=== PATIENT | female | born 1985 | race American Indian/Alaskan Native ===

== ENCOUNTER 2021-05-13 15:27 | Emergency (ER) | payer MEDICARE ==
--- NOTE | 2021-05-13 16:46 | Emergency Department Report ---
HPI - General Chief Complaint: Medical Clearance Time Seen by Provider: 05/13/21 16:00 - HPI HPI: Room 2 Patient is a 35-year-old female present with a chief complaint of decrease in hemoglobin. The patient is approximately 6 weeks 4 days and reportedly had an ultrasound performed at [facility] that showed either no IUP or an IUP without a pole and was subsequently sent to the ED to rule out an ectopic . [facility] primary physician states that the patient's hemoglobin decreased from 7.2 2 days ago to 6.6 today. Patient denies abdominal pain or vaginal bleeding but states she has some low back pain. Patient denies history of fever ED Past Medical Hx - Surgical History Additional Surgical History: - Family History Family history: no significant - Social History Smoking Status: Never Smoker Substance Use Type: Alcohol (Occasional), Marijuana - Medications Home Medications: Home Medications Medication Instructions Recorded Confirmed Last Taken Type Valacyclovir HCl [valACYclovir] 1 tab PO BID 11/06/15 11/06/15 11/04/15 21:00 History 1 Docusate Sodium [Colace] 100 mg PO BID PRN #30 capsule 11/10/15 Unknown Rx Ferrous Sulfate [Feosol 325 MG tab] 325 mg PO TID #120 tablet 11/10/15 Unknown Rx Ibuprofen [Motrin] 800 mg PO Q8HR PRN #40 tablet 11/10/15 Unknown Rx Sulfamethoxazole/Trimethoprim 1 tab PO BID #20 tab 11/10/15 Unknown Rx [Bactrim 400-80 mg] oxyCODONE /ACETAMINOPHEN [Percocet 1 tab PO Q4HR PRN #40 tab 11/10/15 Unknown Rx 5/325] ED Review of Systems ROS: Stated complaint: BLOOD LOW Other details as noted in HPI Constitutional: no symptoms reported Eyes: denies: eye pain ENT: denies: throat pain Respiratory: no symptoms reported Cardiovascular: denies: chest pain Endocrine: no symptoms reported Gastrointestinal: denies: abdominal pain Genitourinary: denies: abnormal menses Musculoskeletal: back pain Neurological: other (Lightheadedness) Physical Exam - Physical Exam Vital Signs: Vital Signs 05/13/21 15:43 Temperature 98.8 F Pulse Rate 106 H Respiratory 18 Rate Blood Pressure 121/68 [Right] O2 Sat by Pulse 100 Oximetry Physical Exam: GENERAL: The patient is well-developed well-nourished female lying on stretcher not appearing to be in acute distress. [] HEENT: Normocephalic. Atraumatic. Extraocular motions are intact. Patient has moist mucous membranes. NECK: Supple. Trachea midline CHEST/LUNGS: Clear to auscultation. There is no respiratory distress noted. HEART/CARDIOVASCULAR: Regular. There is no tachycardia. There is no gallop rub or murmur. ABDOMEN: Abdomen is soft, nontender. Patient has normal bowel sounds. There is no abdominal distention. SKIN: There is no rash. There is no edema. There is no diaphoresis. NEURO: The patient is awake, alert, and oriented. The patient is cooperative. The patient has no focal neurologic deficits. The patient has normal speech. GCS MUSCULOSKELETAL: There is no evidence of acute injury. ED Course Vital Signs 05/13/21 15:43 Temperature 98.8 F Pulse Rate 106 H Respiratory 18 Rate Blood Pressure 121/68 [Right] O2 Sat by Pulse 100 Oximetry ED Medical Decision Making - Lab Data Result diagrams: 05/13/21 17:35 05/13/21 17:35 Laboratory Tests 05/13/21 05/13/21 05/13/21 17:35 17:35 17:35 WBC 6.6 RBC 3.75 Hgb 6.4 L Hct 21.6 L MCV 58 L MCH 17 L MCHC 30 RDW 19.5 H Plt Count 312 Lymph % (Auto) 26.5 [place] % (Auto) 7.2 Eos % (Auto) 1.1 Baso % (Auto) 0.5 Lymph # (Auto) 1.7 [place] # (Auto) 0.4 Eos # (Auto) 0.1 Baso # (Auto) 0.0 Seg Neutrophils % 65.3 Seg Neutrophils # 4.0 Sodium 134 L Potassium 3.5 L Chloride 103.6 Carbon Dioxide 20 L Anion Gap 14 BUN 13 Creatinine 0.5 L Estimated GFR > 60 BUN/Creatinine Ratio 26 Glucose 88 Calcium 8.5 Blood Type O POSITIVE Antibody Screen Negative - Radiology Data Radiology results: report reviewed (Pelvic ultrasound), image reviewed (Pelvic ultrasound) [facility] [address] [place] [address] Ultrasound Report Signed Patient: AMAURI ARNOLD MR#: [id number] : 1985 Acct:[id number] Age/Sex: 35 / F ADM Date: 05/13/21 Loc: ED Attending Dr: Ordering Physician: CHRISTELLE LE MD Date of Service: 05/13/21 Procedure(s): US transvaginal Accession Number(s): [id number] cc: CHRISTELLE LE MD ULTRASOUND OBSTETRIC INDICATION / CLINICAL INFORMATION: , concern for ectopic. - Clinical Gestational Age (GA) in weeks, days: 6, 6 TECHNIQUE: Transabdominal and Transvaginal. COMPARISON: None available. FINDINGS: GESTATIONAL SAC: Well-defined oval shape and intrauterine in location. YOLK SAC: No significant abnormality. EMBRYO/FETUS: No significant abnormality. - [place]-Rump Length = 0.49 cm = 6, 2 weeks, days - Heart Rate, beats per minute (if present) = 126 UTERUS: No significant abnormality. ADNEXA: 1.4 cm slightly complex left ovarian cyst. FREE FLUID: None. ADDITIONAL FINDINGS: None. IMPRESSION: 1. Single, living intrauterine with estimated sonographic age of 6, 2 weeks, days. 2. Slightly complex left ovarian cyst measuring 1.4 cm. No routine follow-up is needed. Signer Name: Alex Saeed MD Signed: 05/13/2021 4:55 PM Workstation Name: [id number] Transcribed By: DT Dictated By: Juan Saeed MD Electronically Authenticated By: Juan Saeed MD Signed Date/Time: 05/13/211654 DD/ 50 TD/TT: - Differential Diagnosis Blighted ovum, ectopic Critical care attestation.: If time is entered above; I have spent that time in minutes in the direct care of this critically ill patient, excluding procedure time. ED Disposition Clinical Impression: Disposition: 01 HOME / SELF CARE / HOMELESS Is pt being admited?: No Does the pt Need Aspirin: No Condition: Stable Additional Instructions: Return to the emergency department should you develop worsening symptoms, inabi lity to tolerate food or liquids, high fever or any other concerns Referrals: [facility] [Provider Group] - 3-5 Days Time of Disposition: 19:22
--- NOTE | 2021-05-13 16:59 | Ultrasound Report ---
ULTRASOUND OBSTETRIC INDICATION / CLINICAL INFORMATION: , concern for ectopic. - Clinical Gestational Age (GA) in weeks, days: 6, 6 TECHNIQUE: Transabdominal and Transvaginal. COMPARISON: None available. FINDINGS: GESTATIONAL SAC: Well-defined oval shape and intrauterine in location. YOLK SAC: No significant abnormality. EMBRYO/FETUS: No significant abnormality. - [place]-Rump Length = 0.49 cm = 6, 2 weeks, days - Heart Rate, beats per minute (if present) = 126 UTERUS: No significant abnormality. ADNEXA: 1.4 cm slightly complex left ovarian cyst. FREE FLUID: None. ADDITIONAL FINDINGS: None. IMPRESSION: 1. Single, living intrauterine with estimated sonographic age of 6, 2 weeks, days. 2. Slightly complex left ovarian cyst measuring 1.4 cm. No routine follow-up is needed. Signer Name: Alex Saeed MD Signed: 05/13/2021 4:55 PM Workstation Name: [id number]
--- NOTE | 2021-05-13 16:59 | Ultrasound Report ---
ULTRASOUND OBSTETRIC INDICATION / CLINICAL INFORMATION: , concern for ectopic. - Clinical Gestational Age (GA) in weeks, days: 6, 6 TECHNIQUE: Transabdominal and Transvaginal. COMPARISON: None available. FINDINGS: GESTATIONAL SAC: Well-defined oval shape and intrauterine in location. YOLK SAC: No significant abnormality. EMBRYO/FETUS: No significant abnormality. - [place]-Rump Length = 0.49 cm = 6, 2 weeks, days - Heart Rate, beats per minute (if present) = 126 UTERUS: No significant abnormality. ADNEXA: 1.4 cm slightly complex left ovarian cyst. FREE FLUID: None. ADDITIONAL FINDINGS: None. IMPRESSION: 1. Single, living intrauterine with estimated sonographic age of 6, 2 weeks, days. 2. Slightly complex left ovarian cyst measuring 1.4 cm. No routine follow-up is needed. Signer Name: Alex Saeed MD Signed: 05/13/2021 4:55 PM Workstation Name: [id number]
[2021-05-13 18:02] LABS: Blood Urea Nitrogen 13 mg/dL (7-17); Calcium 8.5 mg/dL (8.4-10.2); Hemolysis Index 0
[2021-05-13 18:04] LABS: BUN/Creatinine Ratio 26
[2021-05-13 18:19] LABS: Eosinophils # (Auto) 0.1 K/mm3 (0.0-0.4); Eosinophils % (Auto) 1.1 % (0.0-4.3); Monocytes # (Auto) 0.4 K/mm3 (0.0-0.8); Monocytes % (Auto) 7.2 % (0.0-7.3)
[2021-05-13 18:57] LABS: Hematocrit 21.6 % (30.3-42.9); Hemoglobin 6.4 gm/dl (10.1-14.3); Lymphocytes % (Auto) 26.5 % (13.4-35.0); Mean Corpuscular HGB Conc 30 % (30-34); Mean Corpuscular Volume 58 fl (79-97); Platelet Count 312 K/mm3 (140-440); Red Blood Count 3.75 M/mm3 (3.65-5.03); Red Cell Distribution Width 19.5 % (13.2-15.2)
[2021-05-13 18:58] LABS: Basophils % (Auto) 0.5 % (0.0-1.8); Lymphocytes # (Auto) 1.7 K/mm3 (1.2-5.4); Mean Platelet Volume 8.2 fl (6-12)
[2021-05-13 19:09] VITALS: BP 103/49
== END 2021-05-13 19:34 | disposition home or self-care (01) ==
LOC: ED 15:27
DX: O26.891 Other specified pregnancy related conditions, first trimester (principal); R71.0 Precipitous drop in hematocrit; M54.50 Low back pain, unspecified; Z3A.01 Less than 8 weeks gestation of pregnancy
CPT/HCPCS: 36415; 76801; 76817; 76830; 80048; 84702; 85025; 86850; 86900; 86901; 99284